=== PATIENT | female | born 2000 | race Caucasian/White ===

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

== ENCOUNTER 2021-01-27 16:47 | Emergency (ER) | payer OTHER ==
[~2021-01-27] VITALS: Ht 165.1 cm; Wt 58.2 kg
--- NOTE | 2021-01-27 17:36 | PHYS DOC ---
Past History Past Medical History: No Pertinent History, Other (EMILY MENESES MD) Past Surgical History: No Surgical History (EMILY MENESES MD) Smoking: Non-smoker Alcohol Use: None Drug Use: None (EMILY MENESES MD) Adult General Chief Complaint Chief Complaint: PELVIC PAIN [facility] HPI Patient is a 20-year-old female who presents to the emergency room complaining of left pelvic pain. Patient states she woke up with this pain earlier this morning. She states she was supposed to play softball today but due to the pain she was unable to do this. She states trying to run, getting dressed, or any kind of movement makes the pain significantly worse. Pain is significantly better with rest. She has not tried anything at home to help with the pain. She denies any vaginal bleeding or discharge. She states the pain is worse with urination but denies any burning with urination. She states is a sharp pain in h er left side when she tries to urinate. She has some nausea without vomiting. She felt lightheaded and felt she was in a pass out when she was watching her softball game earlier today. She denies any kind of fevers. She has not wanted to eat most of the day. (EMILY MENESES MD) Review of Systems Review of Systems Complete ROS is negative unless otherwise documented in HPI (EMILY MENESES MD) Allergies Allergies Allergies Coded Allergies Type Severity Reaction Last Updated Verified No Known Drug Allergies 01/27/21 No (EMILY MENESES MD) Physical Exam Physical Exam General: Awake, alert, NAD. Well Nourished, well hydrated. Cooperative HEENT: Atraumatic, EOMI, PERRL, airway patent, moist oral mucosa Neck: Supple, trachea midline Respiratory: CTA bilaterally, normal effort, no wheezing/crackles CV: RRR, no murmur, cap refill <2 GI: Soft, nondistended, diffuse lower abdominal tenderness worse in the left pelvic area, no masses MSK: No obvious deformities Skin: Warm, dry, intact Neuro: A&O x3, speech NL, sensory and motor grossly intact, no focal deficits Psych: Normal affect, normal mood, not suicidal or homicidal (EMILY MENESES MD) Current Patient Data Vital Signs Vital Signs Date Time Temp Pulse Resp B/P (MAP) Pulse Ox O2 Delivery O2 Flow Rate FiO2 01/27/21 16:51 98.9 86 16 122/70 (87) 100 (EMILY MENESES MD) EKG EKG [] (EMILY MENESES MD) Radiology/Procedures Radiology/Procedures [] (EMILY MENESES MD) Radiology/Procedures US PELVIS COMPLETE Clinical Indication: Reason: severe pelvic pain / Spl. Instructions: / History: Comparison: None. TECHNIQUE: Real-time ultrasound imaging of the pelvis using transabdominal window is performed. Findings: Uterus measures 7.1 x 5.7 x 3.4 cm. No focal abnormality. The endometrial stripe is upper limits of normal measuring 15 mm. There is normal blood flow of the ovaries. There is large volume heterogeneous free fluid in the bilateral adnexa and the cul-de-sac. There is a complicated cyst of the left ovary measuring 3.5 x 4.3 x 4.3 cm. Portion of the cyst is anechoic. There are echogenicities at the periphery. The echogenicity is a nonvascular. Interpretation assumes the patient is not . The urinary bladder is unremarkable. IMPRESSION: 1. There is large volume heterogeneous free fluid in the bilateral adnexa and the cul-de-sac. Suspect a component of hemorrhage. 2. There is a moderate-sized complicated cyst of the left ovary that is probably a functional cyst and may be hemorrhagic. 3. Normal blood flow in the ovaries. Electronically signed by: Juan C Blum MD (01/27/2021 7:30 PM) [facility] (URSULA MITCHELL MD) Heart Score C/O Chest Pain: N/A Risk Factors: Risk Factors: DM, Current or recent (<one month) smoker, HTN, HLP, family history of CAD, obesity. Risk Scores: Risk Factors: DM, Current or recent (<one month) smoker, HTN, HLP, family history of CAD, obesity. (EMILY MENESES MD) C/O Chest Pain: No (URSULA MITCHELL MD) Course & Med Decision Making Course & Med Decision Making Pertinent Labs and Imaging studies reviewed. (See chart for details) Patient is a 20-year-old female who presents to the emergency room complaining of left pelvic pain. Patient denies any vaginal discharge or bleeding. She does have irregular periods. She states she did take test this morning which was negative. We will do an ultrasound of the pelvis to rule out ovarian torsion, ruptured cyst, ovarian cyst, infection. UA will be done to rule out cystitis. Lab work will be done to evaluate for elevated white blood cell count. Patient does have some right-sided lower abdominal tenderness making appendicitis possible, however her pain is more focused in the left pelvis making ovarian pathology more likely. Patient discussed with oncoming physician Dr. Mitchell who will assume care. (EMILY MENESES MD) Course & Med Decision Making Patient care transferred to md by day team. Patient alert and oriented in no acute distress. Patient with lower left pelvic pain, 2 out of 10 consistently with elevations to 7 out of 10 at times. Negative . Urinalysis not concerning. Laboratory analysis notable for mild leukocytosis. Ultrasound notable for large volume heterogenous fluid suspicious for hemorrhage and a complicated cyst of the left ovary greater than 4 cm x 4 cm. Discussed all findings with family and recommended transfer and admission to [facility] for continued evaluation and treatment by [employer]. Patient grateful, verbalized understanding and agreed with plan of transfer and admission. (URSULA MITCHELL MD) Dragon Disclaimer Dragon Disclaimer This electronic medical record was generated, in whole or in part, using a voice recognition dictation system. (EMILY MENESES MD) Departure Departure: Impression: Primary Impression: Pelvic pain Additional Impressions: Ovarian cyst Hemorrhagic cyst Disposition: SHORT TERM HOSPITAL Admitting Physician: Other (URSULA MITCHELL MD) Condition: STABLE Referrals: DIPTI CASTELLANOS (PCP) Problem Qualifiers EMILY MENESES MD Jan 27, 2021 17:36 URSULA MITCHELL MD Jan 27, 2021 19:17
[2021-01-27 18:03] LABS: BASO % 0 % (0-3); EOS # 0.1 x10^3/uL (0.0-0.7); EOS % 1 % (0-3); HEMATOCRIT 36.3 % (36.0-47.0); HEMOGLOBIN 12.1 g/dL (12.0-15.5); LYMPH # 1.6 x10^3/uL (1.0-4.8); LYMPH % 14 % (24-48); MEAN CORPUSCULAR HEMOGLOBIN 31 pg (25-35); MEAN CORPUSCULAR HGB CONC 33 g/dL (31-37); MEAN CORPUSCULAR VOLUME 94 fL (79-100); MONO # 1.1 x10^3/uL (0.0-1.1); MONO % 9 % (0-9); NEUT # 8.8 x10^3uL (1.8-7.7); NEUT % 76 % (31-73); PLATELET COUNT 294 x10^3/uL (140-400); RED BLOOD COUNT 3.87 x10^6/uL (3.50-5.40); RED CELL DISTRIBUTION WIDTH 12.8 % (11.5-14.5); WHITE BLOOD COUNT 11.5 x10^3/uL (4.0-11.0)
[2021-01-27 18:11] LABS: CALCIUM 8.3 mg/dL (8.5-10.1); CREATININE 0.7 mg/dL (0.6-1.0); GFR 107.8; POTASSIUM 4.1 mmol/L (3.5-5.1)
[2021-01-27 18:14] LABS: BACTERIA,URINE FEW /HPF (0-FEW); BILIRUBIN,URINE NEG (NEG); CLARITY,URINE CLEAR; COLOR,URINE YELLOW; GLUCOSE,URINE NEG (NEG); NITRITE,URINE NEG (NEG); RBC,URINE 0 /HPF (0-2); UROBILINOGEN,URINE 0.2 mg/dL (0.2 mg/dL)
[2021-01-27 18:17] LABS: ALBUMIN 3.6 g/dL (3.4-5.0); ALBUMIN/GLOBULIN RATIO 1.1 (1.0-1.7); TOTAL BILIRUBIN 0.3 mg/dL (0.2-1.0); TOTAL PROTEIN 6.8 g/dL (6.4-8.2)
[2021-01-27] MEDS ORDERED: KETOROLAC 15 MG/ML VIAL. ONE (18:59)
[2021-01-27] MEDS ORDERED: KETOROLAC 15 MG/ML VIAL. IVP ONE (19:00)
--- NOTE | 2021-01-27 19:32 | RAD ---
US PELVIS COMPLETE Clinical Indication: Reason: severe pelvic pain / Spl. Instructions: / History: Comparison: None. TECHNIQUE: Real-time ultrasound imaging of the pelvis using transabdominal window is performed. Findings: Uterus measures 7.1 x 5.7 x 3.4 cm. No focal abnormality. The endometrial stripe is upper limits of n ormal measuring 15 mm. There is normal blood flow of the ovaries. There is large volume heterogeneous free fluid in the bilateral adnexa and the cul-de-sac. There is a complicated cyst of the left ovary measuring 3.5 x 4.3 x 4.3 cm. Portion of the cyst is an echoic. There are echogenicities at the periphery. The echogenicity is a nonvascular. Interpretation assumes the patient is not . The urinary bladder is unremarkable. IMPRESSION: 1. There is large volume heterogeneous free fluid in the bilateral adnexa and the cul-de-sac. Suspec t a component of hemorrhage. 2. There is a moderate-sized complicated cyst of the left ovary that is probably a functional cyst a nd may be hemorrhagic. 3. Normal blood flow in the ovaries. Electronically signed by: Juan C Blum MD (01/27/2021 7:30 PM) [facility]
[2021-01-27] MEDS ORDERED: MORPHINE SULFATE 4 MG/ML DISP.SYRIN. IV ONE (19:45)
[2021-01-27] MEDS ORDERED: IV RINGERS SOLUTION,LACTATED 1,000 ML IV ONE (20:00)
[2021-01-27 22:06] VITALS: BP 121/63
[2021-01-29 17:16] LABS: CHLAMYDIA PROBE Positive (Negative)
== END 2021-01-27 22:18 | disposition short-term general hospital (02) ==
LOC: ER 16:47
DX: N83.202 Unspecified ovarian cyst, left side (principal); R10.2 Pelvic and perineal pain; R42 Dizziness and giddiness; Z20.822 Contact with and (suspected) exposure to COVID-19
CPT/HCPCS: 36415; 76856; 80053; 81001; 81025; 85025; 86850; 86900; 86901; 87426; 87491; 87591; 96361; 96374; 96375; 99285; C9803; J1885; J2270; J7120; Q0111; U0003; U0005

== ENCOUNTER → 2021-11-21 | Outpatient (CLI) | payer OTHER ==
--- NOTE | 2021-11-21 11:38 | RAD ---
EXAM: Pelvic sonogram. HISTORY: Ovarian cyst follow-up. TECHNIQUE: Transabdominal and transvaginal sonographic imaging of the pelvis was performed. COMPARISON: 01/27/2021. FINDINGS: The uterus measures 7.9 x 4.1 x 3.1 cm. The endometrial stripe measures 5 mm. The ovaries a re normal in size and demonstrate normal blood flow. There are multiple bilateral ovarian follicles, the distribution of which does not favor polycystic ovary syndrome. There are prominent bilateral adn exal vessels. There is no pelvic free fluid. IMPRESSION: 1. Resolution of a previously described ovarian cyst. There are multiple physiologic ovarian follicle s. 2. Prominent adnexal vessels. This can be seen with pelvic congestion. Correlate with symptomatology. Electronically signed by: Paulette Mccarthy MD (11/21/2021 11:36 AM) [id number]
== END ==
LOC: US 10:42
PROVIDERS: ATTEND Obstetrics & Gynecology
DX: N83.02 Follicular cyst of left ovary (principal); N83.01 Follicular cyst of right ovary
CPT/HCPCS: 76830; 76856